=== PATIENT | female | born 1985 ===

== ENCOUNTER 2017-10-11 11:02 | Emergency (ER) | payer SELFPAY ==
[2017-10-11 12:07] LABS: #Basophils 0.1 thou/uL (0.0-0.2); #Eosinphils 0.3 thou/uL (0.0-0.7); #Lymphocytes 1.6 thou/uL (1.20-3.40); #Monocytes 0.7 thou/uL (0.11-0.59); #Neutrophils 3.8 thou/uL (1.40-6.50); %Basophils 1.2 % (0.0-1.0); %Eosinophils 4.8 % (0.0-10.0); %Lymphocytes 24.6 % (21.0-51.0); %Monocytes 10.8 % (0.0-10.0); %Neutrophils 58.7 % (42.0-75.0); Hemoglobin 10.5 g/dL (12.0-16.0); Mean Corpuscular HGB CONC 32.7 g/dL (32.0-36.0); Mean Corpuscular Hemoglobin 28.1 pg (27.0-31.0); Mean Corpuscular Volume 86.2 fl (81.0-99.0); Mean Platelet Volume 9.5 fL (7.4-10.4); Platelet Count 210 thou/uL (130-400); RBC Distribution Width 15.4 % (11.5-14.5); Red Blood Cell (RBC) Count 3.74 mill/uL (4.20-5.40); White Blood Cell (WBC) Count 6.5 thou/uL (4.8-10.8)
[2017-10-11 12:28] LABS: ALT (SGPT) 14 U/L (8-55); AST (SGOT) 15 U/L (5-34); Albumin 4.2 g/dL (3.5-5.0); Alkaline Phosphatase 79 U/L (40-150); Anion Gap 8 mmol/L (10-20); BUN (Urea Nitrogen) 12 mg/dL (7.0-18.7); Bilirubin, Total 0.2 mg/dL (0.2-1.2); Calc. Creatinine Clearance 0 mL/min (70-130); Calcium 9.3 mg/dL (7.8-10.44); Carbon Dioxide 27 mmol/L (22-29); Chloride 108 mmol/L (98-107); Estimated GFR-MDRD Greater than 90; Globulin 2.9 g/dL (2.4-3.5); Glucose 69 mg/dL (70-105); Potassium 4.2 mmol/L (3.5-5.1); Protein, Total 7.1 g/dL (6.0-8.3); Sodium 139 mmol/L (136-145)
[2017-10-11 12:29] LABS: Bilirubin Negative (Negative); Blood, Urine Moderate (Negative); Clarity CLOUDY (Clear); Glucose, Urine (Dipstick) Negative (Negative); Leukocyte Large (Negative); Nitrite Positive (Negative); Protein, Urine (Dipstick) 100 mg/dL (Neg-Trace); Urobilinogen 0.2 mg/dL (0.2-1.0)
[2017-10-11 12:30] LABS: Pregnancy Test - Urine (BHCG) Negative (Negative)
[2017-10-11 12:31] LABS: Pregu Control Background? CLEAR/WHITE (CLR/WHITE); Pregu Control Bar Appear? YES (CONTROL BAR)
[2017-10-11 12:32] LABS: Bacteria/HPF 4+ HPF (None Seen); Hyaline Casts/LPF 0-3 HYALINE CAST LPF (0-3 Hyaline); Pathc Cast-AUWi Flag 0.13 (0-2.49); Squamous Epithelial 0-3 HPF (0-3); Yeast-AUWi Flag 40.6 (0-25.0)
[2017-10-11 12:42] LABS: Yeast-All Forms None Seen HPF (None Seen)
== END 2017-10-11 12:58 | disposition home or self-care (01) ==
LOC: ERS 11:02
DX: N39.0 Urinary tract infection, site not specified (principal); F41.9 Anxiety disorder, unspecified
CPT/HCPCS: 36415; 80053; 81003; 81015; 81025; 85025; 99283